=== PATIENT | female | born 1990 | race African-American/Black ===

== ENCOUNTER 2017-01-01 00:52 | Emergency (ER) | payer SELFPAY ==
[~2017-01-01] VITALS: Ht 172.7 cm; Wt 80.0 kg
[~2017-01-01 00:52] MED LIST: DICL.1%O LEFT EYE; IBUP800T23 PO; MMW SSP; OFLO1DRO8 LEFT EYE; PENI500T PO; TYLE3 PO
[2017-01-01 00:53] VITALS: BP 137/75; PULSE 107; RESP 16; TEMP 98.1; O2SAT 98
== END 2017-01-01 03:00 | disposition left against medical advice (07) ==
LOC: NED 00:52
DX: R68.89 Other general symptoms and signs (principal)
CPT/HCPCS: 99281

== ENCOUNTER 2017-09-16 12:00 | Emergency (ER) | payer SELFPAY ==
[~2017-09-16] VITALS: Ht 172.7 cm; Wt 95.0 kg
[2017-09-16 12:01] VITALS: BP 140/83; PULSE 91; RESP 20; TEMP 98.8; O2SAT 96
--- NOTE | 2017-09-16 12:07 | PD ---
HPI Chief Complaint: Eye Problems/Injury Time Seen by Provider: 12:05 Travel History International Travel<30 days: No Contact w/Intl Traveler<30days: No Traveled to known affect area: No History of Present Illness HPI 27-year-old Afro-Burmese female presents the emergency department with severe left eye pain, drainage, crusting this morning. 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 She does have contacts and she did admit to wearing them overnight prior to her symptoms developing. Patient states he has watering from the eye due to pain. She has decreased vision due to the pain. She has photophobia. Pain is currently 9 out of 10. It is localized to the left eye. She is allergic to tramadol. [facility] Past Medical History Diminished Hearing: No ?: Not : 1 Para: 0 Miscarriage: 1 Social History Alcohol Use: No Tobacco Use: No Substance Use: No Allergies-Medications (Allergen,Severity, Reaction): Coded Allergies: tramadol (Verified Allergy, Severe, 09/16/17) Reported Meds & Prescriptions Reported Meds & Active Scripts Active Review of Systems Except as stated in HPI: all other systems reviewed are Neg General / Constitutional: No: Fever Eyes: Positive: Photophobia, Drainage, Redness, Foreign Body Sensation, Pain, Tearing, No: Diploplia, Blurred Vision, Blind Spots, Visual changes, Blindness HENT: No: Headaches Cardiovascular: No: Chest Pain or Discomfort Respiratory: No: Shortness of Breath Gastrointestinal: No: Abdominal Pain Genitourinary: No: Dysuria Musculoskeletal: No: Pain Skin: No Rash Neurologic: No: Weakness Psychiatric: No: Depression Endocrine: No: Polydipsia Hematologic/Lymphatic: No: Easy Bruising Physical Exam Narrative GENERAL: Patient appears in moderate distress. SKIN: Warm and dry. Normal color. Normal turgor. HEAD: Atraumatic. Normocephalic. EYES: Pupils equal and round. No scleral icterus. Left eye has moderate injection, and tearing. No purulent drainage noted. Proparacaine drops and fluorescein dye is instilled. Patient has a generalized corneal abrasion from contact use. No foreign body. ENT: No nasal bleeding or discharge. Mucous membranes pink and moist. Pharynx is clear. Airway is patent. NECK: Trachea midline. Supple nontender. CARDIOVASCULAR: Regular rate and rhythm. RESPIRATORY: No accessory muscle use. Clear to auscultation. Breath sounds equal bilaterally. MUSCULOSKELETAL: Extremities without clubbing, cyanosis, or edema. No obvious deformities. NEUROLOGICAL: Awake and alert. No obvious cranial nerve deficits. Motor grossly within normal limits. Five out of 5 muscle strength in the arms and legs. Normal speech. PSYCHIATRIC: Appropriate mood and affect; insight and judgment normal. Data Data Last Documented VS Vital Signs Date Time Temp Pulse Resp B/P (MAP) Pulse Ox O2 Delivery O2 Flow Rate FiO2 09/16/17 12:01 98.8 91 20 140/83 (102) 96 Room Air Orders Orders Proparacaine 0.5% Opth Soln (Alcaine 0.5 (09/16/17 12:15) MDM Medical Decision Making Medical Screen Exam Complete: Yes Emergency Medical Condition: Yes Differential Diagnosis Left eye pain. Conjunctivitis. Corneal abrasion. Contact lens injury Narrative Course Patient will be treated with Maxitrol ophthalmic ointment 4 times daily for the next week Patient is also given ibuprofen 600 mg 4 times a day #40. 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 Patient is given a note for work for today and tomorrow. Diagnosis Primary Impression: Corneal injury of left eye due to contact lens Referrals: Copy Chief Patient Instructions: Conjunctivitis (ED), Corneal Abrasion (ED), General Instructions Departure Forms: Work Release Enter return to work date: Sep 18, 2017 Additional Instructions: Patient will be treated with Maxitrol ophthalmic ointment 4 times daily for the next week Patient is also given ibuprofen 600 mg 4 times a day #40. 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 Patient is given a note for work for today and tomorrow. Med/Other Pt SpecificInfo: Prescription(s) given Scripts Ibuprofen (Ibuprofen) 600 Mg Tab 600 MG PO Q6H Y for Pain/Inflammation, #40 TAB 0 Refills Prov: Italia Red MD 09/16/17 [id number] Opth Oint (Maxitrol Opth Oint) 3.5 Gm Oint 1 APPLIC LEFT EYE QID for Infection, #3.5 GM 0 Refills Prov: Italia Red MD 10/25/17 Disposition: 01 DISCHARGE HOME Condition: Stable Rajan Morris Sep 16, 2017 12:07
--- NOTE | 2017-09-16 12:07 | PD ---
HPI Chief Complaint: Eye Problems/Injury Time Seen by Provider: 12:05 Travel History International Travel<30 days: No Contact w/Intl Traveler<30days: No Traveled to known affect area: No History of Present Illness HPI 27-year-old Afro-Armenian female presents the emergency department with severe left eye pain, drainage, crusting this morning. 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 She does have contacts and she did admit to wearing them overnight prior to her symptoms developing. Patient states he has watering from the eye due to pain. She has decreased vision due to the pain. She has photophobia. Pain is currently 9 out of 10. It is localized to the left eye. She is allergic to tramadol. [facility] Past Medical History Diminished Hearing: No ?: Not : 1 Para: 0 Miscarriage: 1 Social History Alcohol Use: No Tobacco Use: No Substance Use: No Allergies-Medications (Allergen,Severity, Reaction): Coded Allergies: tramadol (Verified Allergy, Severe, 09/16/17) Reported Meds & Prescriptions Reported Meds & Active Scripts Active Review of Systems Except as stated in HPI: all other systems reviewed are Neg General / Constitutional: No: Fever Eyes: Positive: Photophobia, Drainage, Redness, Foreign Body Sensation, Pain, Tearing, No: Diploplia, Blurred Vision, Blind Spots, Visual changes, Blindness HENT: No: Headaches Cardiovascular: No: Chest Pain or Discomfort Respiratory: No: Shortness of Breath Gastrointestinal: No: Abdominal Pain Genitourinary: No: Dysuria Musculoskeletal: No: Pain Skin: No Rash Neurologic: No: Weakness Psychiatric: No: Depression Endocrine: No: Polydipsia Hematologic/Lymphatic: No: Easy Bruising Physical Exam Narrative GENERAL: Patient appears in moderate distress. SKIN: Warm and dry. Normal color. Normal turgor. HEAD: Atraumatic. Normocephalic. EYES: Pupils equal and round. No scleral icterus. Left eye has moderate injection, and tearing. No purulent drainage noted. Proparacaine drops and fluorescein dye is instilled. Patient has a generalized corneal abrasion from contact use. No foreign body. ENT: No nasal bleeding or discharge. Mucous membranes pink and moist. Pharynx is clear. Airway is patent. NECK: Trachea midline. Supple nontender. CARDIOVASCULAR: Regular rate and rhythm. RESPIRATORY: No accessory muscle use. Clear to auscultation. Breath sounds equal bilaterally. MUSCULOSKELETAL: Extremities without clubbing, cyanosis, or edema. No obvious deformities. NEUROLOGICAL: Awake and alert. No obvious cranial nerve deficits. Motor grossly within normal limits. Five out of 5 muscle strength in the arms and legs. Normal speech. PSYCHIATRIC: Appropriate mood and affect; insight and judgment normal. Data Data Last Documented VS Vital Signs Date Time Temp Pulse Resp B/P (MAP) Pulse Ox O2 Delivery O2 Flow Rate FiO2 09/16/17 12:01 98.8 91 20 140/83 (102) 96 Room Air Orders Orders Proparacaine 0.5% Opth Soln (Alcaine 0.5 (09/16/17 12:15) MDM Medical Decision Making Medical Screen Exam Complete: Yes Emergency Medical Condition: Yes Differential Diagnosis Left eye pain. Conjunctivitis. Corneal abrasion. Contact lens injury Narrative Course Patient will be treated with Maxitrol ophthalmic ointment 4 times daily for the next week Patient is also given ibuprofen 600 mg 4 times a day #40. Recommend follow with her lift electrician in a week to ensure complete healing prior to wearing contacts again. Patient is given a note for work for today and tomorrow. Diagnosis Primary Impression: Corneal injury of left eye due to contact lens Referrals: Entrepreneurial Finance Professor Patient Instructions: Conjunctivitis (ED), Corneal Abrasion (ED), General Instructions Departure Forms: Work Release Enter return to work date: Sep 18, 2017 Additional Instructions: Patient will be treated with Maxitrol ophthalmic ointment 4 times daily for the next week Patient is also given ibuprofen 600 mg 4 times a day #40. Recommend follow with her lift electrician in a week to ensure complete healing prior to wearing contacts again. Patient is given a note for work for today and tomorrow. Med/Other Pt SpecificInfo: Prescription(s) given Scripts Ibuprofen (Ibuprofen) 600 Mg Tab 600 MG PO Q6H Y for Pain/Inflammation, #40 TAB 0 Refills Prov: Italia Red MD 09/16/17 [id number] Opth Oint (Maxitrol Opth Oint) 3.5 Gm Oint 1 APPLIC LEFT EYE QID for Infection, #3.5 GM 0 Refills Prov: Italia Red MD 10/25/17 Disposition: 01 DISCHARGE HOME Condition: Stable Rajan Morris Sep 16, 2017 12:07
--- NOTE | 2017-09-16 12:07 | PD ---
HPI Chief Complaint: Eye Problems/Injury Time Seen by Provider: 12:05 Travel History International Travel<30 days: No Contact w/Intl Traveler<30days: No Traveled to known affect area: No History of Present Illness HPI 27-year-old Afro-Chilean female presents the emergency department with severe left eye pain, drainage, crusting this morning. 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 She does have contacts and she did admit to wearing them overnight prior to her symptoms developing. Patient states he has watering from the eye due to pain. She has decreased vision due to the pain. She has photophobia. Pain is currently 9 out of 10. It is localized to the left eye. She is allergic to tramadol. [facility] Past Medical History Diminished Hearing: No ?: Not : 1 Para: 0 Miscarriage: 1 Social History Alcohol Use: No Tobacco Use: No Substance Use: No Allergies-Medications (Allergen,Severity, Reaction): Coded Allergies: tramadol (Verified Allergy, Severe, 09/16/17) Reported Meds & Prescriptions Reported Meds & Active Scripts Active Review of Systems Except as stated in HPI: all other systems reviewed are Neg General / Constitutional: No: Fever Eyes: Positive: Photophobia, Drainage, Redness, Foreign Body Sensation, Pain, Tearing, No: Diploplia, Blurred Vision, Blind Spots, Visual changes, Blindness HENT: No: Headaches Cardiovascular: No: Chest Pain or Discomfort Respiratory: No: Shortness of Breath Gastrointestinal: No: Abdominal Pain Genitourinary: No: Dysuria Musculoskeletal: No: Pain Skin: No Rash Neurologic: No: Weakness Psychiatric: No: Depression Endocrine: No: Polydipsia Hematologic/Lymphatic: No: Easy Bruising Physical Exam Narrative GENERAL: Patient appears in moderate distress. SKIN: Warm and dry. Normal color. Normal turgor. HEAD: Atraumatic. Normocephalic. EYES: Pupils equal and round. No scleral icterus. Left eye has moderate injection, and tearing. No purulent drainage noted. Proparacaine drops and fluorescein dye is instilled. Patient has a generalized corneal abrasion from contact use. No foreign body. ENT: No nasal bleeding or discharge. Mucous membranes pink and moist. Pharynx is clear. Airway is patent. NECK: Trachea midline. Supple nontender. CARDIOVASCULAR: Regular rate and rhythm. RESPIRATORY: No accessory muscle use. Clear to auscultation. Breath sounds equal bilaterally. MUSCULOSKELETAL: Extremities without clubbing, cyanosis, or edema. No obvious deformities. NEUROLOGICAL: Awake and alert. No obvious cranial nerve deficits. Motor grossly within normal limits. Five out of 5 muscle strength in the arms and legs. Normal speech. PSYCHIATRIC: Appropriate mood and affect; insight and judgment normal. Data Data Last Documented VS Vital Signs Date Time Temp Pulse Resp B/P (MAP) Pulse Ox O2 Delivery O2 Flow Rate FiO2 09/16/17 12:01 98.8 91 20 140/83 (102) 96 Room Air Orders Orders Proparacaine 0.5% Opth Soln (Alcaine 0.5 (09/16/17 12:15) MDM Medical Decision Making Medical Screen Exam Complete: Yes Emergency Medical Condition: Yes Differential Diagnosis Left eye pain. Conjunctivitis. Corneal abrasion. Contact lens injury Narrative Course Patient will be treated with Maxitrol ophthalmic ointment 4 times daily for the next week Patient is also given ibuprofen 600 mg 4 times a day #40. Recommend follow with her assistant community director in a week to ensure complete healing prior to wearing contacts again. Patient is given a note for work for today and tomorrow. Diagnosis Primary Impression: Corneal injury of left eye due to contact lens Referrals: Multigraph Operator Patient Instructions: Conjunctivitis (ED), Corneal Abrasion (ED), General Instructions Departure Forms: Work Release Enter return to work date: Sep 18, 2017 Additional Instructions: Patient will be treated with Maxitrol ophthalmic ointment 4 times daily for the next week Patient is also given ibuprofen 600 mg 4 times a day #40. Recommend follow with her assistant community director in a week to ensure complete healing prior to wearing contacts again. Patient is given a note for work for today and tomorrow. Med/Other Pt SpecificInfo: Prescription(s) given Scripts Ibuprofen (Ibuprofen) 600 Mg Tab 600 MG PO Q6H Y for Pain/Inflammation, #40 TAB 0 Refills Prov: Italia Red MD 09/16/17 [id number]-Wbefgfiingyne Opth Oint (Maxitrol Opth Oint) 3.5 Gm Oint 1 APPLIC LEFT EYE QID for Infection, #3.5 GM 0 Refills Prov: Italia Red MD 10/25/17 Disposition: 01 DISCHARGE HOME Condition: Stable Rajan Morris Sep 16, 2017 12:07
[2017-09-16] MEDS ORDERED: PROPARACAINE HCL 0.5% OPHT SOLN 15 ML BTL LEFT EYE ONE (12:15)
[2017-09-16] MEDS ORDERED: MAXI0.1O LEFT EYE (12:26)
[2017-09-16] MEDS ORDERED: IBUP-232 PO (12:26)
== END 2017-09-16 12:54 | disposition home or self-care (01) ==
LOC: NEPK 12:00
DX: T15.02XA Foreign body in cornea, left eye, initial encounter (principal)
CPT/HCPCS: 99283